=== PATIENT | female | born 1990 | race Caucasian/White ===

== ENCOUNTER 2020-01-13 20:14 | Emergency (ER) | payer OTHER ==
[2020-01-13 20:36] VITALS: BP 108/59
--- NOTE | 2020-01-13 20:48 | UC ---
Upper Extremity HPI - HPI Summary HPI Summary: per agency service representative: "Nausea and diarrhea x2-3 days. Pt also reports 4-5 days ago pt experienced acute onset R arm swelling from the elbow, down. Pt states it was present for < 24 hours. Pt thought that since she works at the [employer] so she may have aggravated her arm somehow moving product. Last night her arm started swelling again and it has not gone down. Pt reports pain in the crease of her elbow, and some warmth to the touch." -here w/ [facility] -denies personal or Fhx DVT. not on OCP or etsrogen. denies IV drug use and PICC lines. no trauma -no fevers. -ther is no pain in lois arm unless you push really hard on it. -no cp/sob/ no w/n/t -has not ahd any diarrhea today/ able to eat a full meal and kept it down. -no rash - History of Current Complaint Chief Complaint: UCUpperExtremity Stated Complaint: RIGHT ARM SWELLING, NAUSEA, DIARRHEA Time Seen by Provider: 01/13/20 20:32 Hx Last Menstrual Period: 12/25/19 Pain Intensity: 2 - Allergies/Home Medications Allergies/Adverse Reactions: Allergies Allergy/AdvReac Type Severity Reaction Status Date / Time No Known Allergies Allergy Verified 01/13/20 20:28 Home Medications: Home Medications Acetaminophen [Tylenol Extra Strength] 1,000 mg PO ONCE 01/13/20 [History Confirmed 01/13/20] Ibuprofen TAB* [Motrin TAB* 800 MG] 800 mg PO ONCE 01/13/20 [History Confirmed 01/13/20] Naproxen [EC-Naproxen] 1 dose PO ONCE 01/13/20 [History Confirmed 01/13/20] lamoTRIgine [Lamotrigine] 150 mg PO BID 01/13/20 [History Confirmed 01/13/20] PMH/Surg Hx/FS Hx/Imm Hx Previously Healthy: Yes - Surgical History Surgical History: None - Family History Known Family History: Positive: Other - no DVT hx - Social History Alcohol Use: None Substance Use Type: None Smoking Status (MU): Heavy Every Day Tobacco Smoker Amount Used/How Often: 1 ppd Review of Systems All Other Systems Reviewed And Are Negative: Yes Constitutional: Positive: Negative. Negative: Fever, Chills, Fatigue Skin: Positive: Negative. Negative: Rash Eyes: Positive: Negative ENT: Positive: Negative. Negative: Sore Throat, Ear Ache, Nasal Discharge Respiratory: Positive: Negative. Negative: Shortness Of Breath, Cough Cardiovascular: Positive: Negative. Negative: Palpitations, Chest Pain Gastrointestinal: Positive: Diarrhea - resolved x 24 hrs. Negative: Abdominal Pain, Vomiting, Nausea Genitourinary: Positive: Negative. Negative: Dysuria Motor: Positive: Negative Neurovascular: Positive: Negative Musculoskeletal: Positive: Negative Neurological/Mental Status: Positive: Negative Psychological: Positive: Negative Is Patient Immunocompromised?: No Physical Exam Triage Information Reviewed: Yes Appearance: Well-Appearing, No Pain Distress, Well-Nourished Vital Signs: Initial Vital Signs Temp 99.1 F 01/13/20 20:30 Pulse 80 01/13/20 20:30 Resp 17 01/13/20 20:30 BP 108/59 01/13/20 20:30 Pulse Ox 100 01/13/20 20:30 Eye Exam: Normal ENT Exam: Normal ENT: Positive: Pharynx normal Respiratory Exam: Normal Respiratory: Positive: Lungs clear, Normal breath sounds, No respiratory distress, No accessory muscle use. Negative: Crackles, Rhonchi, Stridor, Wheezing Cardiovascular Exam: Normal Cardiovascular: Positive: RRR Abdominal Exam: Normal Musculoskeletal: Positive: Other: - right arm w/ minimal if any right flexor medial proximal arm at elbow. possible slightl dilated vein that is tender w/ deep palptaion only. no erythema. FROM. CR brisk. + 2 radial. NVI. strngth intact Neurological Exam: Normal Psychological Exam: Normal Skin Exam: Normal Upper Extremity Course/Dx - Course Course Of Treatment: right flexor medial aspect of elbow (but not lateral) w/ possible minimal swelling appreciated. no erythema. possible slightly prominent vein that is tender w/ deep firm palpation only. no RFs for DVT - no Fhx, no estrogen/ocp use , no personal DVt hx. no PICC line, no arm trauma. low supsicion for DVT. did have some relief w/ KELL. -possible phlebitis vs soft tissue injury -did not go to work today. works at [employer] and does a lot of lifting -would like to try to RTW on 01/14. will give 2 notes - OOW today and tomorrow and out of work x next 3 days and she can return on the 15 if it is resolved. -KELL 600-800mgs Q 8 hrs x several days - Differential Dx/Diagnosis Differential Diagnosis/HQI/PQRI: Contusion, Strain, Sprain, Other - phlebitis Provider Diagnosis: Swelling of right upper extremity Discharge ED - Sign-Out/Discharge Documenting (check all that apply): Patient Departure All imaging exams completed and their final reports reviewed: No Studies - Discharge Plan Condition: Stable Disposition: HOME Patient Education Materials: Acute Diarrhea (ED), Phlebitis (ED) Forms: *School Release, *Work Release Referrals: Torin Mueller NP [Primary Care Provider] - 3 Days Additional Instructions: The suspicion for a blood clot is low as you do not have any risk factors for it and the exam does not appear consistent with a blood clot. However, you should go to the ER with any worsening of symptoms, chest pains or shortness of breath. out of work note given. - Billing Disposition and Condition Condition: STABLE Disposition: Home
== END 2020-01-13 21:02 | disposition home or self-care (01) ==
LOC: UCCORT 20:14
DX: R22.33 Localized swelling, mass and lump, upper limb, bilateral (principal); R19.7 Diarrhea, unspecified; R11.0 Nausea; F17.210 Nicotine dependence, cigarettes, uncomplicated
CPT/HCPCS: 99201; G0463

== ENCOUNTER 2020-02-05 10:38 | Emergency (ER) | payer OTHER ==
--- NOTE | 2020-02-05 11:55 | UC ---
[facility] HPI HPI Summary: 29yo female presenting with nasal discharge x3 days and dry cough since yesterday. Notes mild maxillary sinus pressure. Denies sore throat. Denies sob, wheezing, and difficulty breathing. Denies chest pain and discomfort. Notes normal appetite. Denies n/v/d. Notes fatigue. Denies fever, chills, body aches. Denies known ill contacts, including anyone with covid or suspected covid. Denies h/o asthma or other lung disorders. Smoke ~10 cigarettes/day. Patient states she works at [employer] and employer asking for testing before she can return to work. [facility] PMH - Family History Known Family History: Positive: Other - no DVT hx, Non-Contributory - Social History Alcohol Use: None Substance Use Type: Reports: None Smoking Status (MU): Heavy Every Day Tobacco Smoker Amount Used/How Often: 1 ppd [facility] ROS All Other Systems Reviewed And Are Negative: Yes Positive: Fatigue Positive: Nasal Discharge Cardiovascular: Negative Positive: Cough. Negative: Shortness Of Breath Gastrointestinal: Negative Negative: Myalgia Skin: Negative Neurological/Mental Status: Negative Negative: Headache [facility] PE Appearance: Positive: Well-Appearing, Alert and Oriented, No Pain Distress, Well -Nourished Skin: Positive: Skin Color Reflects Adequate Perfusion Eyes: Positive: Conjunctiva Clear ENT: Positive: Hearing grossly normal Neck: Positive: Supple Respiratory/Lung Sounds: Positive: Normal Respiratory Effort Cardiovascular: Positive: Skin Color Reflects Adequate Perfusion Neurological: Positive: Alert, Oriented to Person Place, Time, Speech Normal Psychiatric: Positive: Normal, Affect/Mood Appropriate [facility] Course/Dx Assessment/Plan: I interviewed this patient using telemedicine to help decrease transmission of covid 19. Patient verbally consented to telehealth visit. This does limit the physical exam. Patient declined flu testing. I informed patient that she would receive the covid19 results within the next 3-5 days. I discussed self quarantining until results have been received and they are advised otherwise. Instructed to continue with symptomatic treatment. Instructed to go to the ED if she experiences shortness of breath/difficulty breathing. Patient voiced understanding and agreed with treatment plan. All questions answered to the best of my abilities. Provider Diagnoses: [facility] Provider Recommendation for Treatment: Home/Supportive Care Telehealth Visit: Patient Consented Verbally to Telehealth Visit Telehealth Patient Statement: The patient should understand that they are communicating with their provider via a secure communication platform and that all the same privacy and confidentiality rules apply. They will also be responsible for copayments or coinsurances that apply to any Telehealth visit. Patient Identifiers: 2 Patient Identifiers Verified for Telehealth Visit Telehealth Visit Start Time: 12:05 Telehealth Visit End Time: 12:10 Telehealth Provider Attestation: The above services were appropriate to provide in a Telehealth setting. - Attestation Statements Provider Attestation: I was available for consult. This patient was evaluated by the BEL via telemedicine. The patient was not presented to , seen by or examined by me Wil Walkre MD
== END 2020-02-05 12:28 | disposition home or self-care (01) ==
LOC: UCCORT 10:38
DX: J06.9 Acute upper respiratory infection, unspecified (principal); R05 Cough; Z20.828 Contact with and (suspected) exposure to other viral communicable diseases; F17.200 Nicotine dependence, unspecified, uncomplicated
CPT/HCPCS: 87635; 99211; G0463